=== PATIENT | male | born 1945 | race Caucasian/White ===

== ENCOUNTER 2017-08-20 23:48 | Emergency (ER) | payer MEDICARE, OTHER ==
[~2017-08-20] VITALS: Ht 188 cm; Wt 91.0 kg
[2017-08-21] MEDS ORDERED: IBUPROFEN 600MG TABLET PO ONE (01:45)
[2017-08-21 02:57] LABS: BASOPHILS % 0.4 % (0.0-2.0); EOSINOPHILS % 0.6 % (0.0-5.0); HEMATOCRIT. 34.6 % (42.0-52.0); HEMOGLOBIN. 11.2 g/dL (14.0-18.0); LYMPHOCYTES % 15.5 % (20.0-50.0); MEAN CORPUSCULAR HEMOGLOBIN 24.9 pg (28.0-32.0); MEAN CORPUSCULAR VOLUME 77.2 fL (80.0-94.0); MEAN PLATELET VOLUME 9.7 fl (7.4-10.4); MONOCYTES % 6.4 % (2.0-8.0); NEUTROPHILS % 77.1 % (40.0-76.0); PLATELET 162 x1000/uL (130-400); RED BLOOD CELL COUNT 4.48 mill/uL (4.7-6.1); RED CELL DISTRIBUTION WIDTH 23.5 % (11.6-14.6)
[2017-08-21 03:02] LABS: INR 1.1; PROTHROMBIN TIME 11.5 sec (9.4-11.6)
[2017-08-21 03:03] LABS: CHLORIDE 109 mEq/L (98-107)
[2017-08-21 04:44] LABS: PLATELET ESTIMATE NORMAL
[2017-08-21 05:05] VITALS: BP 139/67
== END 2017-08-21 05:49 | disposition home or self-care (01) ==
LOC: ER 23:48 → CANBEDREQ 08-21 07:53
DX: R53.1 Weakness (principal); M25.552 Pain in left hip; M25.551 Pain in right hip; G71.0 Muscular dystrophy; I10 Essential (primary) hypertension; Z86.73 Personal history of transient ischemic attack (TIA), and cerebral infarction without residual deficits
CPT/HCPCS: 36415; 73502; 80053; 85025; 85610; 93005; 99285